=== PATIENT | female | born 1980 | race African-American/Black ===

== ENCOUNTER 2016-11-11 07:35 | Emergency (ER) | payer OTHER ==
[~2016-11-11] VITALS: Ht 170.2 cm; Wt 74.8 kg
[2016-11-11 08:35] LABS: ABSOLUTE NEUTROPHILS 2.9 thou/uL (1.4-8.2); BASOPHILS 1.2 % (0.0-2.0); EOSINOPHILS 1.1 % (0.0-3.0); HEMATOCRIT 46.1 % (37.0-47.0); HEMOGLOBIN 15.5 gm/dL (12.0-15.0); LYMPHOCYTES 32.9 % (24.0-44.0); MCH 29.6 pg (26.0-34.0); MCHC 33.5 g/dL (28.0-37.0); MCV 88.4 fL (80.0-100.0); MONOCYTES 8.3 % (1.0-8.0); PLATELET COUNT 235 thou/uL (150-400); POLYS 56.5 % (36.0-66.0); RBC 5.21 mil/uL (4.20-5.00); RDW 14.8 % (10.5-14.5); WBC 5.1 thou/uL (4.0-11.0)
[2016-11-11 08:36] LABS: MANUAL DIFF NO
[2016-11-11 08:43] LABS: ANION GAP 10 mmol/L (7-16); BUN 10 mg/dL (7-18); CALCIUM 9.5 mg/dL (8.5-10.1); CHLORIDE 103 mmol/L (98-107); CO2 25 mmol/L (21-32); CREATININE 0.9 mg/dL (0.6-1.0); GLUCOSE 125 mg/dL (74-106); POTASSIUM 3.5 mmol/L (3.5-5.1); SODIUM 138 mmol/L (136-145)
[2016-11-11 08:47] LABS: ALBUMIN 4.4 g/dL (3.4-5.0); ALKALINE PHOSPHATASE 44 U/L (46-116); DIRECT BILIRUBIN 0.2 mg/dL (<0.1-0.3); SALICYLATE 4.7 mg/dL (2.8-20.0); SGOT 37 U/L (15-37); SGPT 21 U/L (30-65); TOTAL BILIRUBIN 0.6 mg/dL (<0.1-1.0); TOTAL PROTEIN 8.2 g/dL (6.4-8.2)
[2016-11-11 08:59] LABS: ACETAMINOPHEN < 2 ug/mL (10-30)
[2016-11-11 09:13] LABS: AMP/METHAMP Negative (Negative); BARBITURATES Negative (Negative); BENZODIAZEPINES Negative (Negative); COCAINE POSITIVE (Negative); METHADONE Negative (Negative); OPIATES Negative (Negative); PCP POSITIVE (Negative); THC Negative (Negative)
[2016-11-11 11:17] VITALS: BP 104/75
== END 2016-11-11 11:20 | disposition home or self-care (01) ==
LOC: ER 07:35
PROVIDERS: Emergency Medicine
DX: F10.151 Alcohol abuse with alcohol-induced psychotic disorder with hallucinations (principal); F14.10 Cocaine abuse, uncomplicated; F15.10 Other stimulant abuse, uncomplicated; Z88.0 Allergy status to penicillin; F17.210 Nicotine dependence, cigarettes, uncomplicated